=== PATIENT | male | born 1960 | race Caucasian/White ===

== ENCOUNTER → 2017-06-08 | Outpatient (CLI) | payer OTHER ==
--- NOTE | 2017-06-08 15:23 | CT ---
Examination: CT of the chest without contrast Clinical History: Right upper lobe infiltrate. Technique: Multiple axial images were obtained from the lung apices down to the lung bases. No intrav enous contrast was administered. Dose reduction techniques including automated exposure control (AEC) and adjustment of mA and kV were utilized. Comparison: None available. Findings: The thyroid gland is unremarkable. The heart is normal in size. No pericardial effusion is noted. The thoracic aorta is mildly calcified, but is normal in caliber. The remainder of the great vessels are within normal limits. There is a 7.5 x 5.0 x 7.4 cm heterogeneous, irregular shaped pleural based mass seen in the right up per lobe, with some apparent central necrosis. Erosive bony changes are seen associated with the aubrey cent posterior right 4th and 5th ribs. A small irregular-shaped 6 mm indeterminate noncalcified pulmo nary nodule is present in the right middle lobe (series 4, image 30). The pleural based masses highly suspicious for a primary lung carcinoma and the small pulmonary nodule could represent a metastasis. Erosive changes associated with the posterior ribs are highly suspicious for bony metastases. A PET- CT scan is recommended for further evaluation. Evaluation of the hilar and mediastinal structures is limited due to a lack of intravenous contrast. There is a 2.8 x 2.0 cm enlarged right upper paratracheal lymph node, with an enlarged 2.4 x 1.8 cm r ight lower paratracheal lymph node also noted and multiple smaller lymph nodes also seen in the AP wi ndow. Findings are worrisome for malignant involvement. No central obstructing bronchial lesion is noted. No pleural effusion is noted. Surgical clips are noted in the gallbladder fossa, consistent with a prior cholecystectomy. There is a 1.2 x 1.1 cm left adrenal mass, which measures approximately 14 Hounsfield units on the noncontrast ed images and probably represents a benign adrenal adenoma. An adrenal protocol CT, or an MRI of the abdomen, with in and opposed phase imaging, could be obtained for proper characterization of this les ion. The remainder of the visualized portion of the upper abdomen is unremarkable. Degenerative changes are noted in the spine. Impression: 1. Large pleural based mass in the right upper lobe, with a small 6 mm pulmonary nodule seen in the r ight middle lobe. Erosive bony changes are seen associated with the adjacent posterior right 4th and 5th ribs. The pleural based mass is highly suspicious for a primary lung carcinoma and the small pulm onary nodule could represent a metastasis. Erosive changes associated with the posterior ribs are hig hly suspicious for bony metastases. A PET-CT scan is recommended for further evaluation. 2. Enlarged mediastinal lymph nodes, as described above. Findings are worrisome for malignant involve ment. 3. There is a 1.2 x 1.1 cm left adrenal mass, which measures approximately 14 Hounsfield units on the noncontrasted images and probably represents a benign adrenal adenoma. An adrenal protocol CT, or an MRI of the abdomen, with in and opposed phase imaging, could be obtained for proper characterization of this lesion. Reported By:
== END ==
LOC: RAD 13:37
DX: R91.8 Other nonspecific abnormal finding of lung field (principal); R59.0 Localized enlarged lymph nodes; E27.8 Other specified disorders of adrenal gland
CPT/HCPCS: 71250